=== PATIENT | female | born 1990 | race Asian ===

== ENCOUNTER 2021-02-24 20:43 | Emergency (ER) | payer BC ==
[~2021-02-24] VITALS: Ht 154.9 cm; Wt 37.0 kg
[2021-02-24] MEDS ORDERED: ENALAPRIL 1.25MG/ML VIAL 1ML IV ONE (22:15)
[2021-02-24 22:57] LABS: CLARITY URINE CLEAR (CLEAR); COLOR URINE YELLOW (YELLOW); KETONES URINE NEGATIVE (NEGATIVE); LEUKOCYTE ESTERASE URINE NEGATIVE (NEGATIVE); NITRITE URINE NEGATIVE (NEGATIVE); OCCULT BLOOD URINE NEGATIVE (NEGATIVE); PH URINE 6.5 (4.5-8.0); PROTEIN URINE NEGATIVE (NEGATIVE); SPECIFIC GRAVITY URINE 1.009 (1.005-1.030); UROBILINOGEN URINE 0.2 E.U./dL (0.2-1.0)
[2021-02-24 22:58] LABS: BASOPHILS % 0.7 % (0.0-2.0); EOSINOPHILS % 1.6 % (0.0-5.0); HEMATOCRIT. 30.6 % (36.0-48.0); HEMOGLOBIN. 9.4 g/dL (12.0-16.0); LYMPHOCYTES % 24.2 % (20.0-50.0); MEAN CORPUSCULAR HEMOGLOBIN 19.7 pg (28.0-32.0); MEAN CORPUSCULAR VOLUME 64.4 fL (81.0-99.0); MEAN PLATELET VOLUME 7.1 fl (7.4-10.4); MONOCYTES % 5.9 % (2.0-8.0); NEUTROPHILS % 67.6 % (40.0-76.0); PLATELET 412 x1000/uL (130-400); RED BLOOD CELL COUNT 4.75 mill/uL (4.2-5.4); RED CELL DISTRIBUTION WIDTH 18.1 % (11.6-14.6)
[2021-02-24 23:03] LABS: CHLORIDE 108 mEq/L (98-107)
[2021-02-24 23:43] LABS: HCG SCREEN NEGATIVE
[2021-02-25] MEDS ORDERED: NIFEDIPINE 10MG CAPSULE PO NR (00:15)
[2021-02-25 00:38] LABS: PLATELET ESTIMATE SLIGHTLY INCREASED
[2021-02-25] MEDS ORDERED: AMLO5TAB88 MT (01:34)
[2021-02-25 01:45] VITALS: BP 124/82
== END 2021-02-25 01:47 | disposition home or self-care (01) ==
LOC: ER 20:43
DX: I10 Essential (primary) hypertension (principal); R94.31 Abnormal electrocardiogram [ECG] [EKG]
CPT/HCPCS: 36415; 71045; 80053; 81003; 81025; 84703; 85025; 93005; 96374; 99285; J3490

== ENCOUNTER 2025-01-22 20:57 | Inpatient (IN) | payer BC ==
[~2025-01-22] VITALS: Ht 154.9 cm; Wt 41.3 kg
[~2025-01-22 20:57] MED LIST: AMLO5TAB88 MT
[2025-01-22 21:52] LABS: BASOPHILS % 0.4 % (0.0-2.0); EOSINOPHILS % 1.8 % (0.0-5.0); HEMATOCRIT. 39.1 % (36.0-48.0); HEMOGLOBIN. 13.6 g/dL (12.0-16.0); LYMPHOCYTES % 22.8 % (20.0-50.0); MEAN PLATELET VOLUME 7.6 fl (7.4-10.4); MONOCYTES % 8.7 % (2.0-8.0); NEUTROPHILS % 66.3 % (40.0-76.0); PLATELET 257 x1000/uL (130-400); RED BLOOD CELL COUNT 4.33 mill/uL (4.2-5.4); RED CELL DISTRIBUTION WIDTH 13.4 % (11.6-14.6)
[2025-01-22 22:02] LABS: INR 0.9
[2025-01-22 22:04] LABS: HCG SCREEN NEGATIVE
[2025-01-22 22:07] LABS: CREATININE 0.7 mg/dL (0.6-1.0); ETHANOL BLOOD < 10 mg/dL (<10); UREA NITROGEN BLOOD 13 mg/dL (9-23)
[2025-01-22 22:10] LABS: TROPONIN I HIGH SENSITIVITY < 4 ng/L (3.0-34)
[2025-01-22] MEDS ORDERED: ONDANSETRON 4MG ODT PO ONE (22:15)
[2025-01-22 22:39] LABS: CLARITY URINE CLEAR (CLEAR); COLOR URINE YELLOW (YELLOW); GLUCOSE URINE NEGATIVE (NEGATIVE); KETONES URINE NEGATIVE (NEGATIVE); LEUKOCYTE ESTERASE URINE NEGATIVE (NEGATIVE); NITRITE URINE NEGATIVE (NEGATIVE); OCCULT BLOOD URINE NEGATIVE (NEGATIVE); PH URINE 7.5 (4.5-8.0); PROTEIN URINE TRACE (NEGATIVE); SPECIFIC GRAVITY URINE 1.022 (1.005-1.030); UROBILINOGEN URINE 0.2 E.U./dL (0.2-1.0)
[2025-01-22 22:50] LABS: *AMPHETAMINES SCREEN URINE NEGATIVE (NEGATIVE); *BARBITURATES SCREEN URINE NEGATIVE (NEGATIVE); *BENZODIAZEPINES SCREEN URINE NEGATIVE (NEGATIVE); *COCAINE SCREEN URINE NEGATIVE (NEGATIVE); CANNABINOID URINE SCREEN NEGATIVE (NEGATIVE); METHADONE URINE SCREEN NEGATIVE (NEGATIVE); OPIATES URINE SCREEN NEGATIVE (NEGATIVE); PHENCYCLIDINE URINE SCREEN NEGATIVE (NEGATIVE)
[2025-01-22 22:51] LABS: ECSTASY MDMA SCREEN URINE NEGATIVE (NEGATIVE)
[2025-01-22 23:04] LABS: BACTERIA URINE NONE SEEN; RBC URINE NONE SEEN /hpf (0-2); SQUAMOUS EPITHELIAL CELL URINE RARE /lpf (RARE/1+); WBC URINE NONE SEEN /hpf (0-2)
[2025-01-22] MEDS: POTASSIUM CHLORIDE 20MEQ TABLET SR PO ONE (23:18)
[2025-01-22] MEDS: LABETALOL 5MG/ML 4ML INJ IV ONE (23:20)
[2025-01-23] VITALS (8 sets, daily range): BP systolic 118–183; BP diastolic 88–121; PULSE 96–112; RESP 19–20; TEMP 36.6–36.8; O2SAT 98
[2025-01-23] MEDS ORDERED: IOHEXOL-350 100 ML BOTTLE ONE (00:35)
[2025-01-23] MEDS ORDERED: ESCI20TA37 PO (02:08)
[2025-01-23] MEDS ORDERED: [UNRECOGNIZED DRUG - CODE] PO (02:08)
[2025-01-23] MEDS ORDERED: ONDANSETRON HCL 4MG/2ML INJ IV PRN (02:15)
[2025-01-23] MEDS ORDERED: IPRATROPIUM/ALBUTEROL 0.5-3(2.5)MG/3ML NEB HHN PRN (02:15)
[2025-01-23] MEDS ORDERED: ACETAMINOPHEN 325MG TABLET PO PRN ×2 (02:15)
[2025-01-23] MEDS ORDERED: GUAIFENESIN 200MG/10ML SUGAR FREE UDC PO PRN (02:15)
[2025-01-23] MEDS: ASPIRIN 81MG EC TABLET PO SCH (03:21)
[2025-01-23] MEDS: HYDRALAZINE 20MG/ML VIAL IV PRN (03:23)
[2025-01-23] MEDS: CITALOPRAM HYDROBROMIDE 10MG TABLET PO SCH (09:39)
[2025-01-23 10:37] LABS: BASOPHILS % 1.1 % (0.0-2.0); EOSINOPHILS % 1.6 % (0.0-5.0); HEMATOCRIT. 43.7 % (36.0-48.0); HEMOGLOBIN. 15.3 g/dL (12.0-16.0); LYMPHOCYTES % 19.6 % (20.0-50.0); MEAN PLATELET VOLUME 7.9 fl (7.4-10.4); MONOCYTES % 5.4 % (2.0-8.0); NEUTROPHILS % 72.3 % (40.0-76.0); PLATELET 325 x1000/uL (130-400); RED BLOOD CELL COUNT 4.89 mill/uL (4.2-5.4); RED CELL DISTRIBUTION WIDTH 13.3 % (11.6-14.6)
[2025-01-23 10:59] LABS: CREATININE 0.5 mg/dL (0.6-1.0); UREA NITROGEN BLOOD 8 mg/dL (9-23)
[2025-01-23] MEDS: CLONIDINE 0.1MG TABLET PO PRN (12:49)
[2025-01-23] MEDS: AMLODIPINE 10MG TABLET PO SCH (13:45)
[2025-01-23] MEDS: CLOPIDOGREL 75MG TABLET PO SCH (15:06)
[2025-01-23] MEDS: POTASSIUM CHLORIDE 20MEQ TABLET SR PO SCH (20:32)
[2025-01-23] MEDS: ATORVASTATIN CALCIUM 40MG TABLET PO SCH (20:33)
[2025-01-24] VITALS: BP 148/97; PULSE 94; RESP 16; TEMP 36.4; O2SAT 99
[2025-01-24 04:00] VITALS: BP 135/95; PULSE 82; RESP 16; TEMP 36.4; O2SAT 99
[2025-01-24 06:24] LABS: CREATININE 0.7 mg/dL (0.6-1.0)
[2025-01-24 06:25] LABS: LDL CHOLESTEROL 145 mg/dL (5-100); TRIGLYCERIDE 190 mg/dL (0-150); TROPONIN I HIGH SENSITIVITY < 4 ng/L (3.0-34); UREA NITROGEN BLOOD 13 mg/dL (9-23)
[2025-01-24 06:29] LABS: T4 FREE 1.10 ng/dL (0.89-1.76)
[2025-01-24 06:31] LABS: ASPARTATE AMINOTRANSFERASE 30 IU/L (<34); BILIRUBIN DIRECT 0.1 mg/dL (<=3.0); BILIRUBIN TOTAL 0.7 mg/dL (0.1-1.0)
[2025-01-24 06:32] LABS: PROTEIN TOTAL 6.4 g/dL (6.0-8.3)
[2025-01-24 06:52] LABS: BASOPHILS % 0.7 % (0.0-2.0); EOSINOPHILS % 2.3 % (0.0-5.0); HEMATOCRIT. 40.6 % (36.0-48.0); HEMOGLOBIN. 14.1 g/dL (12.0-16.0); LYMPHOCYTES % 26.3 % (20.0-50.0); MEAN PLATELET VOLUME 7.9 fl (7.4-10.4); MONOCYTES % 8.3 % (2.0-8.0); NEUTROPHILS % 62.4 % (40.0-76.0); PLATELET 288 x1000/uL (130-400); RED BLOOD CELL COUNT 4.51 mill/uL (4.2-5.4); RED CELL DISTRIBUTION WIDTH 13.4 % (11.6-14.6)
[2025-01-24 08:00] VITALS: BP 146/98; PULSE 80; RESP 16; TEMP 36.7; O2SAT 99
[2025-01-24 12:00] VITALS: BP 143/86; PULSE 99; RESP 16; TEMP 36.3; O2SAT 99
[2025-01-24 16:00] VITALS: BP 140/80; PULSE 100; RESP 6; TEMP 36.8; O2SAT 99
[2025-01-24] MEDS ORDERED: AMLO10TA80 MT (17:46)
[2025-01-24] MEDS ORDERED: ATOR-2 MT (17:46)
[2025-01-24] MEDS ORDERED: CLOP-31 MT (17:46)
[2025-01-24] MEDS ORDERED: ASPI-1160 MT (17:46)
[2025-01-24 17:57] VITALS: BP 143/86; PULSE 99; TEMP 98.2; O2SAT 99
== END 2025-01-24 19:35 | disposition home health service (06) | DRG 64 ==
LOC: ER 20:57 → 7WST 22:40 → EDBEDREQTM 23:03 → EDBEDREQ 23:03 → ENRESERV 01-23 00:01 → 7WST 01-23 00:21
PROVIDERS: ADMIT Hospitalist; ATTEND Hospitalist
DX: I63.9 Cerebral infarction, unspecified (principal); G93.41 Metabolic encephalopathy; Z68.1 Body mass index [BMI] 19.9 or less, adult; G81.94 Hemiplegia, unspecified affecting left nondominant side; E44.0 Moderate protein-calorie malnutrition; I16.0 Hypertensive urgency; I10 Essential (primary) hypertension; E87.6 Hypokalemia; F41.9 Anxiety disorder, unspecified; R29.810 Facial weakness; R29.700 NIHSS score 0; Z79.899 Other long term (current) drug therapy
CPT/HCPCS: 36415; 70496; 70498; 70551; 71045; 80048; 80061; 80076; 80305; 80320; 81003; 83036; 83735; 83835; 83880; 84439; 84443; 84484; 84703; 85025; 92523; 93005; 97161; 97166; 97530; 99291; A4606; J0360; J3490; Q9967; G0480